=== PATIENT | male | born 1970 | race Caucasian/White ===

== ENCOUNTER 2021-12-10 18:02 | Emergency (ER) | payer SELFPAY ==
[2021-12-10 18:27] LABS: HEMOGLOBIN 18.6 gm/dl (14.0-17.5); RED BLOOD COUNT 5.68 M/UL (4.20-5.50); WHITE BLOOD COUNT 13.2 K/UL (4.5-11.0)
[2021-12-10 19:00] LABS: BUN/CREATININE RATIO 9 (0-10)
[2021-12-10] MEDS ORDERED: NARCAN4 MG (23:39)
== END 2021-12-11 01:06 | disposition home or self-care (01) ==
LOC: EDBD 18:02 → ER1 18:02
PROVIDERS: Family Medicine
DX: R41.82 Altered mental status, unspecified (principal)
CPT/HCPCS: 70450; 80053; 80307; 81001; 85025; 93005; 99285; G0480